=== PATIENT | male | born 1955 | race Caucasian/White ===

== ENCOUNTER → 2023-10-25 14:05 | Outpatient (REF) | payer BC, SELFPAY | LOC: DHCBC MAIN 14:05 | PROVIDERS: ATTENDING PHYSICIAN Internal Medicine Cardiovascular Disease; FAMILY PHYSICIAN Family Medicine | DX: R07.9 Chest pain, unspecified (principal); I20.9 Angina pectoris, unspecified | CPT/HCPCS: 93306 ==

== ENCOUNTER → 2023-11-02 10:21 | Outpatient (REF) | payer OTHER, SELFPAY | LOC: RCS 10:21 | PROVIDERS: ATTENDING PHYSICIAN Internal Medicine Cardiovascular Disease; FAMILY PHYSICIAN Family Medicine | DX: R07.9 Chest pain, unspecified (principal); I20.9 Angina pectoris, unspecified | CPT/HCPCS: 93017 ==

== ENCOUNTER 2023-11-11 07:20 | Day surgery (SDC) | payer OTHER, SELFPAY ==
[2023-11-08 12:31] VITALS: BMI 33.5
[2023-11-08 12:39] LABS: % Basophils 0.7 % (0-2); % Eosinophils 1.5 % (0-6); % Immature Granulocytes 0.6 % (0-0.5); % Lymphocytes 20.6 % (20.5-51.1); % Monocytes 7.4 % (1.7-9.3); % Neutrophils 69.2 % (42.2-75.2); Absolute Basophils 0.1 10^3/uL (0-0.2); Absolute Eosinophils 0.1 10^3/uL (0-0.7); Absolute Lymphocytes 1.5 10^3/uL (1.2-3.4); Absolute Monocytes 0.5 10^3/uL (0.1-0.6); Absolute Neutrophils 4.9 10^3/uL (1.4-6.5); Hematocrit 41.8 % (39.0-52.0); Hemoglobin 15.4 g/dL (13.0-18.0); Mean Corp Hgb Conc. 36.8 g/dL (33.0-37.0); Mean Corpuscular Hgb 30.9 pg (27.0-31.0); Mean Corpuscular Volume 83.9 fL (80.0-94.0); Mean Platelet Volume 9.7 fL (7.4-10.4); Nucleated Red Blood Cells % 0 % (-); Platelet Count 232 10^3/uL (130-400); Red Blood Cell Count 4.98 10^6/uL (4.70-6.10); Red Cell Dist. Width 12.4 % (11.5-14.5); White Blood Cell Count 7.1 10^3/uL (4.8-10.8)
[2023-11-08 13:17] LABS: ALT (SGPT) 30 U/L (0-50); AST (SGOT) 29 U/L (17-59); Alkaline Phosphatase 59 U/L (38-126); Blood Urea Nitrogen 16 mg/dl (9-20); Calcium 9.1 mg/dl (8.4-10.2); Carbon Dioxide 24 mmol/L (22-30); Chloride 105 mmol/L (98-107); Estimated Creatinine Clearance 95 ml/min; Glucose 171 mg/dl (70-99); Potassium 4.3 mmol/L (3.5-5.1); Sodium 134 mmol/L (135-145); Total Bilirubin 0.8 mg/dl (0.2-1.3); Total Protein 6.6 g/dl (6.3-8.2); eGFR > 60.00
--- NOTE | 2023-11-08 13:17 | HPS.HSE ---
Family Physician
-
Family Physician: Sharon Borja PA-C
Chief Complaint
-
Abnormal stress test. Precordial pain.
History of Present Illness
The patient is a pleasant 68 year old male presenting today for precordial pain. He notes that over the last 6-8 weeks he's been experiencing ongoing bouts of chest pain. His chest pain is substernal and pressure-like with associated
shortness of breath. He often notes his chest pain with exertion and reports that his chest pain is relieved with rest. An exercise stress test preformed on 11/02/2023 revealed ischemia with a [address] depression in leads II, III and aVF and a [address] depression in leads V5-V6, which resolved 2 minutes in recovery. Given his abnormal stress test and his ongoing chest pain, it is advised he proceed with a left cardiac catheterization. He denies any current complaints today such as chest pain
and shortness of breath at rest, palpitations, nausea, vomiting, diarrhea, lightheadedness, dizziness, cough, sore throat, or fever.
Medical History
Past Medical History
Past Medical History: Reports Other
Additional Past Medical History:
1. Abnormal stress test.
2. Precordial pain.
3. Dyslipidemia.
4. Left upper lobe calcified granuloma on chest CTA 2014.
5. GERD.
6. Hiatal hernia.
7. Fatty liver disease.
8. Lumbar degenerative disc disease.
9. Osteoarthritis and right rotator cuff arthropathy, status post right total shoulder arthroplasty with rotator cuff repair 2018.
10. Mild hyponatremia.
11. Obesity, BMI 33.5.
12. Remote history of tobacco abuse.
Past Surgical History: Reports Other
Additional Past Surgical History:
1. Right total shoulder arthroplasty with rotator cuff repair.
2. Right knee surgery.
Social History
Tobacco: Former Smoker (Former <1 pack per day cigarette smoker who quit tobacco altogether 45 years ago. )
Alcohol: None
Personal:
Living: Other (He lives in a ranch style home with his and extended family. )
Family History
Family History: Not pertinent
Allergies / Home Medications
Allergy/Medication List:
Home medications:
1. Aspirin 81 mg p.o. at bedtime.
2. Isosorbide mononitrate 30 mg p.o. daily.
3. Metoprolol succinate 25 mg p.o. at bedtime.
Allergies: No known allergies.
Review of Systems
-
A 12 point ROS was completed and negative except as noted: Yes
Physical Exam
Vital Signs
Blood pressure 137/68. Heart rate 70. Respirations 18. Pulse ox 96% on room air.
Height 5 feet, 9 inches. Weight 102.9 kg. BMI 33.5.
Physical Exam
General: Well Developed, Well Nourished and No Apparent Distress
HEENT: NormoCephalic, Moist mucous membranes, Atraumatic and PERRLA
Respiratory: Clear
Cardiac: Regular Rhythm
GI: Soft, Non Tender, Non Distended and Other (Obese. )
Musculoskeletal: Normal Gait & Station
Skin: Warm and Dry
Neuro: AO x 3 and Nonfocal/grossly intact
Laboratory Results
-
11/08/23 12:23
DIAGNOSTIC STUDIES as of 11/08/2023: Sodium 134. Potassium 4.3. BUN 16. Creatinine 0.9. Glucose 171. Calcium 9.1. AST 29. ALT 30. Albumin 4.0.
EKG 11/08/2023: Normal sinus rhythm with sinus arrhythmia. Compared to the prior EKG of 01/20/2018, no significant change was found.
Exercise stress test 11/02/2023: The patient was exercised by the Emery protocol to stage 3 for 6 minutes and 17 seconds achieving 7.5 METS. The exercise ECG was positive for ischemia at 88% maximum predicted heart rate with a [address] depression in
leads II, III and aVF and a [address] depression in leads V5-V6, which resolved 2 minutes in recovery. The blood pressure response was within normal limits. There was arrhythmia during the study; PAC's, PVC's, ventricular couplets and ventricular
triplets. The exercise tolerance was well below average. Symptomatology - none. This is a moderate risk stress test (DTS = -3.75).
Echocardiogram 10/25/2023: Normal left ventricular size and function with no regional wall motion abnormality.�Estimated ejection fraction 65 to 70%. Normal diastolic function.�Normal right ventricular size and function.�No significant valvular
disease. No prior for comparison.
Impression/Plan
-
IMPRESSION/PLAN:
1. Abnormal stress test and precordial pain: The patient is in need of a left cardiac catheterization with Dr. Javier West on 11/11/2023. The benefits and risks of the procedure have been explained to the patient. The patient understands these
risks and wishes to proceed. He is aware to continue his Aspirin up to and including the day of his cardiac catheterization.
[2023-11-11] VITALS (17 sets, daily range): BP systolic 91–117; BP diastolic 54–72; BMI 33.5
[2023-11-11] MEDS: NSS 309 ML IV (07:41)
[2023-11-11 09:52] LABS: ACT-LR - POC 266 Seconds (116-155)
--- NOTE | 2023-11-11 10:41 | ITS.CL.CATH ---
Content Management Specialist - Catheterization
Cardiac Catheterization
Procedure Report:
CARDIAC CATHETERIZATION REPORT
Date of Procedure: 11/11/2023
Referring: Frederick Pino MD
Indication: Recent onset angina with emotional stress followed by abnormal stress test
HEMODYNAMIC DATA
AO: 94/59
LV: 94/12
LEFT VENTRICULOGRAPHY: Normal ventricular wall motion with EF 64%
CORONARY ANGIOGRAPHY
Dominance: Right
Left Main: Normal
LAD: 90% proximal LAD stenosis spanning the takeoff of the large second septal chief investigator. The remainder of the LAD system has trivial luminal disease
Circumflex: Mild luminal irregularities
RCA: Dominant vessel with 70% mid RCA stenosis and 80% distal RCA stenosis just proximal to the takeoff of the RPDA. The RCA terminates with a medium sized PDA and several medium sized right posterolateral branches
Angioplasty: At the conclusion of the diagnostic study, we reviewed options to include referral for elective CABG versus staged multivessel PCI. Given his normal left ventricular function in the absence of diabetes, I felt there was no survival
advantage for CABG and therefore he could choose either option. The patient opted for PCI. Heparin was used for anticoagulation. Plavix 600 mg was administered the procedure conclusion. I was concerned that the LAD lesion might not be able to be
successfully wired and therefore we chose to do LAD PCI today. Additionally the RCA has a high anterior takeoff and there is significant innominate tortuosity making cannulation of the RCA difficult to impossible from the right radial artery
approach. An EBU 3.5 guide catheter sat nicely in the left main coronary artery. A BMW wire was successfully passed into the distal LAD with surprising ease. Angioplasty with a 2.25 x 12 trek to 10 jackson was followed by placement of a 3.5 x 23
Xience GERARDO deployed at 15 jackson then postdilated with a 3.5 NC trek to 17 jackson. The final angiographic result was outstanding. There were no procedural complications.
Closure Device: None-the procedure was performed via the right radial artery. The Wesley's test was normal prior to the procedure.
Radiation (mGy): 1053
DAP (cm2.Gy): 97.4
Fluoroscopy time: 13.0 minutes
CONCLUSIONS
1: Normal left ventricular function with EF 64%
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
3. Successful stenting of 90% proximal LAD stenosis using 3.5 x 23 Xience GERARDO with outstanding angiographic result
4. The patient will return for staged intervention to treat the mid and distal RCA disease in approximately 1 week. This procedure would best be done from a femoral approach as there is significant innominate tortuosity which precluded selective
cannulation of the RCA. Of note, the RCA has a high anterior takeoff which would likely best be engaged with an Amplatz guide
Copy to: Frederick Pino MD, Sharon Borja PA-C
Javier West MD, [facility], [facility]
--- NOTE | 2023-11-11 13:12 | W.PN.UPDATE ---
Update Note
Progress Note Update
Pt seen post LAD PCI. Right radial cath site without ht/bleeding. OOB to chair/bathroom. Post EKG NSR 60s, no acute changes. Pt understands importance of uninterrupted DAPT w/asa, plavix. New start atorvastatin 40mg/daily. Cardiac rehab consulted.
There is residual CAD within the RCA, and pt will return for staged PCI on 11/17. Followup at [facility] after 2nd procedure. Home later today if cath site/tele remain stable.
== END 2023-11-11 15:30 | disposition home or self-care (01) ==
LOC: CATH 07:20
PROVIDERS: ATTENDING PHYSICIAN Internal Medicine Cardiovascular Disease; FAMILY PHYSICIAN Physician Assistant Medical; OTHER PHYSICIAN Internal Medicine Cardiovascular Disease
DX: I25.10 Atherosclerotic heart disease of native coronary artery without angina pectoris (principal); R94.39 Abnormal result of other cardiovascular function study; R07.2 Precordial pain; E78.5 Hyperlipidemia, unspecified; K21.9 Gastro-esophageal reflux disease without esophagitis; K44.9 Diaphragmatic hernia without obstruction or gangrene; Z87.891 Personal history of nicotine dependence; E87.1 Hypo-osmolality and hyponatremia; E66.9 Obesity, unspecified; Z68.35 Body mass index [BMI] 35.0-35.9, adult; M51.36 Other intervertebral disc degeneration, lumbar region; K76.0 Fatty (change of) liver, not elsewhere classified; M19.90 Unspecified osteoarthritis, unspecified site; Z79.82 Long term (current) use of aspirin
CPT/HCPCS: 36415; 80053; 85025; 85347; 93005; 93458; C1721; C1769; C1874; C1894; C9600; Q9967

== ENCOUNTER 2023-11-18 06:26 | Day surgery (SDC) | payer OTHER, SELFPAY ==
[2023-11-18] VITALS (20 sets, daily range): BP systolic 100–127; BP diastolic 61–88; BMI 35.2
[2023-11-18] MEDS: NSS 315 ML IV (07:02)
[2023-11-18 08:36] LABS: ACT-LR - POC 266 Seconds (116-155)
[2023-11-18] MEDS: NSS 1000 IV (09:11)
--- NOTE | 2023-11-18 09:12 | ITS.CL.CATH ---
Back Maker - Catheterization
Cardiac Catheterization
Procedure Report:
CORONARY ANGIOPLASTY REPORT
Date of Procedure: 11/18/2023
Referring: Frederick Pino MD
Indication: Staged revascularization of RCA following LAD PCI 1 week ago
PROCEDURE SUMMARY:
1. Successful stenting of tandem 50% and 80% distal RCA lesions using 2.75 x 26 Maximus GERARDO postdilated with 3.0 mm noncompliant balloon
2. Successful stenting of 70% proximal RCA stenosis using 3.5 x 18 [place] GERARDO
DESCRIPTION OF PROCEDURE: The patient returned following angiography and LAD stenting 1 week earlier for completion of his revascularization with a planned treatment of the distal and proximal RCA lesions. His procedure last week was technically
challenging due to innominate tortuosity and due to that and the anterior takeoff of the RCA our plan was for femoral access today. Using a micropuncture technique, right femoral artery access was obtained. Heparin 7000 units was administered. A
6 [place] 0.75 guide catheter was advanced to the RCA and sat nicely with reasonably good backup support. A BMW wire was easily passed across both proximal and distal disease. This wire would not take a path into the PDA and was placed in the
large first right posterolateral branch. A second BMW wire was then advanced through the guide with an attempt to wire the PDA as the distal stent would snf the PDA origin. Due to the distal lesion (which extended up to the bifurcation of the PDA
and RAVG branch) straightening the guidewire tip, we were not able to access the PDA for protection. A 2.5 x 20 Euphora balloon was used for predilatation and there was no plaque shift into the PDA. We then placed a 2.75 x 26 Maximus [place] GERARDO
which was deployed at 15 jackson. The angiographic result was outstanding with no plaque shift into the now jailed PDA. Postdilatation was accomplished with a 3.0 x 20 NC Euphora to 17 jackson. We then placed a 3.5 x 18 Maximus GERARDO to treat the proximal
disease with deployment pressure 14 jackson followed by postdilatation with a 3.5 NC Euphora to 17 jackson. The final angiographic result was outstanding. There were no procedural complications.
ANTI-COAGULATION THERAPY
1: Heparin 7000 units
Closure Device Used: 6 [place] Angio-Seal RFA
Radiation (mGy): 1182
DAP (cm2.Gy): 71.4
Fluoroscopy time: 12.9 minutes
CONCLUSIONS: Successful stenting of proximal and distal RCA lesions as described above. Recommend continue dual antiplatelet therapy for minimum 12 months
Copy to: Frederick Pino MD, Sharon Borja, [facility]
Javier West MD, FACC, [facility]
--- NOTE | 2023-11-18 13:00 | W.PN.UPDATE ---
Update Note
Progress Note Update
68 yo WM s/p PCI RCAx2 GERARDO (same day). He feels good, no cp, sob, manisha diet, voiding, amb w/o dizziness, R fem site c/d/i no HT, soft. EKG SR no ST changes. He will continue DAPT ASA/Plavix. He will stop isosorbide (imdur). He will start cardiac
rehab in 1 mo. ACtivity restrictions reviewed. He has f/u apt FRONT END SOFTWARE ENGINEER in 1 week. He is for d/c home after 2pm.
PROCEDURE SUMMARY:
1.� Successful stenting of tandem 50% and 80% distal RCA lesions using 2.75 x 26 [place] GERARDO postdilated with 3.0 mm noncompliant balloon
2.� Successful stenting of 70% proximal RCA stenosis using 3.5 x 18 [place] GERARDO
[2023-11-18 13:03] LABS: ACT-LR - POC > 397 Seconds (116-155)
== END 2023-11-18 14:00 | disposition home or self-care (01) ==
LOC: CATH 06:26
PROVIDERS: ATTENDING PHYSICIAN Internal Medicine Cardiovascular Disease; FAMILY PHYSICIAN Family Medicine; OTHER PHYSICIAN Internal Medicine Cardiovascular Disease
DX: I25.10 Atherosclerotic heart disease of native coronary artery without angina pectoris (principal); Z79.02 Long term (current) use of antithrombotics/antiplatelets; Z79.82 Long term (current) use of aspirin; Z95.5 Presence of coronary angioplasty implant and graft; K21.9 Gastro-esophageal reflux disease without esophagitis; K76.0 Fatty (change of) liver, not elsewhere classified; Z87.891 Personal history of nicotine dependence
CPT/HCPCS: 85347; 93005; C1725; C1760; C1769; C1874; C1887; C1894; C9600; Q9967

== ENCOUNTER 2024-01-09 17:15 | Outpatient (RCR) | payer OTHER, SELFPAY | END 2024-01-09 23:59 | disposition home or self-care (01) | LOC: CRHB 17:15 | PROVIDERS: ATTENDING PHYSICIAN Internal Medicine Cardiovascular Disease | DX: I25.10 Atherosclerotic heart disease of native coronary artery without angina pectoris (principal); Z95.5 Presence of coronary angioplasty implant and graft | CPT/HCPCS: G0422; G0423 ==

== ENCOUNTER 2024-02-08 17:43 | Outpatient (RCR) | payer OTHER, SELFPAY | END 2024-02-08 23:59 | disposition home or self-care (01) | LOC: CRHB 17:43 | PROVIDERS: ATTENDING PHYSICIAN Internal Medicine Cardiovascular Disease | DX: I25.10 Atherosclerotic heart disease of native coronary artery without angina pectoris (principal); Z95.5 Presence of coronary angioplasty implant and graft | CPT/HCPCS: G0422 ==

== ENCOUNTER 2024-03-07 17:32 | Outpatient (RCR) | payer OTHER, SELFPAY | END 2024-03-07 23:59 | disposition home or self-care (01) | LOC: CRHB 17:32 | PROVIDERS: ATTENDING PHYSICIAN Internal Medicine Cardiovascular Disease | DX: I25.10 Atherosclerotic heart disease of native coronary artery without angina pectoris (principal); Z95.5 Presence of coronary angioplasty implant and graft | CPT/HCPCS: G0422 ==

== ENCOUNTER 2024-03-19 18:01 | Outpatient (RCR) | payer OTHER, SELFPAY | END 2024-03-19 23:59 | disposition home or self-care (01) | LOC: CRHB 18:01 | PROVIDERS: ATTENDING PHYSICIAN Internal Medicine Cardiovascular Disease | DX: I25.10 Atherosclerotic heart disease of native coronary artery without angina pectoris (principal); Z95.5 Presence of coronary angioplasty implant and graft | CPT/HCPCS: G0422; G0423 ==

== ENCOUNTER 2024-07-22 15:54 | Emergency (ER) | payer OTHER, SELFPAY ==
[2024-07-22 15:57] VITALS: BP 122/81
[2024-07-22] MEDS: ADACEL 0.5 ML IM (17:44)
--- NOTE | 2024-07-22 17:50 | ED.GENMED ---
History of Present Illness
General
Chief Complaint: Head Injury
Source: patient and records
Exam Limitations: none
Time Seen by Provider: 07/22/24 17:07
Nursing documentation reviewed up to this point in time: agreed with
History of Present Illness
History of Present Illness:
Patient is a 69-year-old male who presents to the emergency department from urgent care after being struck on the head by a branch and falling off the ladle pourer onto the ground. Patient had no loss of consciousness. Patient's had some visual
blurring that is cleared. Patient denies any speech difficulties, focal weakness or ataxia. Patient denies any numbness or paresthesias. Patient denies any neck or back pain. Patient denies any nausea or vomiting. Patient is on a baby aspirin
and Plavix. Patient sent for CT of the head.
Past History
Past History
ED Past Medical History: CAD, GERD, Hypercholesterolemia and Other (Osteoarthritis)
ED Past Surgical History: Orthopedic (Arthroscopic knee surgery)
Social History
Tobacco: Non-smoker
Alcohol: Occasional
Drug: None
Personal:
Living: with family
Employment: Employed
Family History
Family History: Negative Early CAD
Review of Systems
Review of Systems
All Other Systems: Not applicable
Phy Exam
Physical Exam
Physical Exam:
Physical Exam
General: No apparent distress, alert and appropriate, well nourished, well hydrated
HENT: Normocephalic with superficial abrasions of forehead and right lateral infraorbital region, supple with no tracheal deviation or contusion
Eyes: Clear sclera, conjuctiva without injection, extraocular muscles intact
Heart: Regular rhythm and rate. No S3, S4. No murmur. No NVD, bruit
Lungs: No respiratory distress, no stridor, chest wall symmetrical and nontender
Abdomen: Soft, nontender
Neuro: Alert and oriented x 3, CN II - XII intact, no motor focality, no cerebellar dysfunction
Skin: Abrasion superficial of forehead and right lateral infraorbital region
Psychiatric: well kept. interactive and cooperative
Extremities: No edema, cyanosis, tenderness
Musculoskeletal: No cervical, thoracic or lumbar spine tenderness
Course
Orders/Labs/Results
Orders:
Orders
07/22/24 16:[address] [CT Head W/o Iv Contrast] Urgent
Comment:
Reason For Exam: head injury +plavix
07/22/24 17:25
Tetanus/Diphth/Acelpertussis [Adacel] 0.5 ml IM .ONCE ONE
Vital Signs
Initial and Last Documented VS:
Initial Vital Signs
Temp Pulse Resp BP Pulse Ox
97.6 F 73 16 122/81 97
07/22/24 15:57 07/22/24 15:57 07/22/24 15:57 07/22/24 15:57 07/22/24 15:57
Last Documented Vital Signs
Temp Pulse Resp BP Pulse Ox
97.6 F 73 16 122/81 97
07/22/24 15:57 07/22/24 15:57 07/22/24 15:57 07/22/24 15:57 07/22/24 15:57
*Radiology
Radiology exam reviewed: preliminary read by ED provider (CT unremarkable)
*Pulse Oximetry
Patient hypoxic: no
*EKG
Interpreted by ED Provider?: NA
*Diagnostic Cardiac Sonographer Interpretation
Rate: Diagnostic Cardiac Sonographer- N/A
*Critical Care Note
Total Time (30-74mins, 75-104mins- exclusive of procedures): Not Applicable
ED Attending Note
-
Portions of this chart may have been created with voice recognition software.� Occasional wrong word or��sound alike� substitutions may have occurred due to the inherent limitations of voice recognition software.
Discharge Plan
Departure
Patient Disposition: Home (Routine Discharge)
Date of Disposition: 07/22/24
Time of Disposition: 17:55
Patient with high blood pressure during this ER visit?: No
Covid-19: Not Applicable
Discharge Problem:
Closed head injury, Abrasion of forehead
Instructions: Wound Care (DC), Minor Head Injury (DC), Td (Tetanus, Diphtheria) Vaccine [facility] Vaccine Information Statement (VIS)
Prescriptions:
No Action
aspirin 81 mg Tablet,Delayed Release (Dr/Ec)
81 mg PO DAILY
metoprolol succinate 25 mg Tablet Extended Release 24 Hr
25 mg PO HS
atorvastatin 40 mg tablet
40 mg PO DAILY Qty: 90 3RF
clopidogrel 75 mg tablet
75 mg PO DAILY Qty: 90 3RF
nitroglycerin 0.4 mg tablet, sublingual
0.4 mg sublingual [id number] PRN (Reason: chest pain) Qty: 25 2RF
Referrals:
Young Mccormick, DO [Family Provider] - As needed
Activity Restrictions/Additional Instructions:
Continue present medications and therapy. Keep abrasions clean with soap and water.
Interventions
Interventions:
*Risk Screen - Suicide Last Done: 07/22/24 17:11
*General Assessment Last Done: 07/22/24 17:11
*Neglect/Abuse Screening Last Done: 07/22/24 17:11
*ED COVID-19 Vaccine History Last Done: 07/22/24 17:11
ED- Neurological Assessment Last Done: 07/22/24 17:11
ED-Skin Assessment Last Done: 07/22/24 17:11
Discharge Date and Time
Print Language: SRI LANKAN
[2024-07-22 18:05] VITALS: BP 113/76
== END 2024-07-22 18:07 | disposition home or self-care (01) ==
LOC: EMR 15:54
PROVIDERS: EMERGENCY PHYSICIAN Emergency Medicine; FAMILY PHYSICIAN Family Medicine
DX: S09.90XA Unspecified injury of head, initial encounter (principal); S00.81XA Abrasion of other part of head, initial encounter; W22.8XXA Striking against or struck by other objects, initial encounter; W28.XXXA Contact with powered lawn mower, initial encounter; Z79.01 Long term (current) use of anticoagulants; Z23 Encounter for immunization
CPT/HCPCS: 99284; 90471; 70450; 90715

== ENCOUNTER → 2024-11-07 09:42 | Outpatient (REF) | payer OTHER, SELFPAY | LOC: RCS 09:42 | PROVIDERS: ATTENDING PHYSICIAN Nurse Practitioner Gerontology; FAMILY PHYSICIAN Family Medicine | DX: I25.10 Atherosclerotic heart disease of native coronary artery without angina pectoris (principal); R06.09 Other forms of dyspnea | CPT/HCPCS: 93017; 93350; Q9957 ==